=== PATIENT | male | born 1985 | race Native Hawaiian/Other Pacific Islander ===

== ENCOUNTER 2020-02-21 05:34 | Emergency (ER) | payer OTHER ==
[~2020-02-21] VITALS: Ht 188 cm; Wt 104.3 kg
[2020-02-21 05:40] VITALS: TEMP 98.3
[2020-02-21 06:27] LABS: PLATELET COUNT 176 K/uL (142-355)
[2020-02-21 06:30] LABS: POTASSIUM 3.6 mmol/L (3.6-5.2); SODIUM 139 mmol/L (136-145)
[2020-02-21 10:20] VITALS: BP 141/58
== END 2020-02-21 10:25 | disposition home or self-care (01) ==
LOC: ED 05:34
PROVIDERS: Emergency Medicine
DX: R07.89 Other chest pain (principal)
CPT/HCPCS: 36415; 80053; 80307; 82550; 82553; 84484; 85027; 85379; 93005; 96360; 99284